=== PATIENT | female | born 1960 | race American Indian/Alaskan Native ===

== ENCOUNTER 2021-06-21 22:53 | Emergency (ER) | payer MEDICARE ==
[2021-06-22] MEDS ORDERED: ONDANSETRON 4 MG/2 ML INJ IV ONE (03:03)
[2021-06-22] MEDS ORDERED: MORPHINE 4 MG/1 ML INJ IV ONE (03:03)
[2021-06-22 03:36] LABS: Basophils # (Auto) 0.1 K/mm3 (0.0-0.1); Basophils % (Auto) 0.4 % (0.0-1.8); Eosinophils % (Auto) 0.2 % (0.0-4.3); Hematocrit 39.4 % (30.3-42.9); Hemoglobin 12.6 gm/dl (10.1-14.3); Lymphocytes # (Auto) 1.5 K/mm3 (1.2-5.4); Lymphocytes % (Auto) 10.8 % (13.4-35.0); Mean Corpuscular HGB Conc 32 % (30-34); Mean Corpuscular Volume 89 fl (79-97); Monocytes # (Auto) 0.8 K/mm3 (0.0-0.8); Monocytes % (Auto) 5.6 % (0.0-7.3); Platelet Count 325 K/mm3 (140-440); Red Blood Count 4.43 M/mm3 (3.65-5.03)
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
[2021-06-22 03:58] LABS: Alanine Aminotransferase 36 units/L (7-56); Albumin 4.7 g/dL (3.9-5); BUN/Creatinine Ratio 16; Blood Urea Nitrogen 13 mg/dL (7-17); Hemolysis Index 13
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
[2021-06-22 06:48] VITALS: BP 146/93
== END 2021-06-22 06:49 | disposition home or self-care (01) ==
LOC: ED 22:53
DX: S20.219A Contusion of unspecified front wall of thorax, initial encounter (principal); S30.1XXA Contusion of abdominal wall, initial encounter; V89.2XXA Person injured in unspecified motor-vehicle accident, traffic, initial encounter; M62.830 Muscle spasm of back; J45.909 Unspecified asthma, uncomplicated; Z79.899 Other long term (current) drug therapy; Y93.89 Activity, other specified; Y92.89 Other specified places as the place of occurrence of the external cause; Y99.8 Other external cause status
CPT/HCPCS: 36415; 70450; 71260; 72100; 72125; 74177; 80053; 85025; 96374; 96375; 99284; J2270; J2405; Q9967